=== PATIENT | male | born 1955 | race African-American/Black ===

== ENCOUNTER 2017-08-01 07:46 | Emergency (ER) | payer OTHER ==
[2017-08-01 09:00] LABS: ALT (SGPT) 35 U/L (8-55); AST (SGOT) 58 U/L (5-34); Albumin 3.5 g/dL (3.4-4.8); Alkaline Phosphatase 110 U/L (40-150); Anion Gap 12 mmol/L (10-20); BUN (Urea Nitrogen) 21 mg/dL (8.4-25.7); Bilirubin, Total 1.3 mg/dL (0.2-1.2); Calc. Creatinine Clearance 0 mL/min (70-130); Calcium 8.3 mg/dL (7.8-10.44); Carbon Dioxide 22 mmol/L (23-31); Chloride 104 mmol/L (98-107); Estimated GFR-MDRD 61; Globulin 3.8 g/dL (2.4-3.5); Glucose 118 mg/dL (80-115); Potassium 3.5 mmol/L (3.5-5.1); Protein, Total 7.3 g/dL (5.8-8.1); Sodium 134 mmol/L (136-145)
[2017-08-01 09:04] LABS: #Lymphocytes 1.6 thou/uL (1.20-3.40); #Monocytes 1.2 thou/uL (0.11-0.59); #Neutrophils 5.2 thou/uL (1.40-6.50); %Basophils 0.3 % (0.0-1.0); %Eosinophils 0.3 % (0.0-10.0); %Lymphocytes 19.4 % (21.0-51.0); %Monocytes 14.5 % (0.0-10.0); %Neutrophils 65.5 % (42.0-75.0); Hemoglobin 8.8 g/dL (14.0-18.0); MDiff Complete? YES; Macrocytosis SLIGHT = 6-15 cells (100X) (0-5/hpf); Mean Corpuscular HGB CONC 33.5 g/dL (32.0-36.0); Mean Corpuscular Hemoglobin 39.9 pg (27.0-31.0); Mean Platelet Volume 8.5 fL (7.4-10.4); PLT Morphology Comment Appears Adequate; Platelet Count 98 thou/uL (130-400); RBC Distribution Width 13.8 % (11.5-14.5)
[2017-08-01 09:05] LABS: CKMB 1.8 ng/mL (0-6.6); Troponin I 0.013 ng/mL (< 0.028)
--- NOTE | 2017-08-01 11:06 | ULT ---
ULTRASOUND WITH DOPPLER DUPLEX VENOUS LOWER EXTREMITIES BILATERAL: Date: 08/01/17 Time: 0910 hours HISTORY: 61-year-old male with bilateral lower extremity edema and left knee pain. TECHNIQUE: Color flow Doppler, spectral waveform analysis of pulsed Doppler, and estrada-scale imaging with rogelio fransisco and augmentation, were used to evaluate the bilateral common femoral, femoral, popliteal, hvac design engineer ior tibial, and superficial femoral, veins; and the proximal portions of the profunda femoral and gre ater saphenous, veins. FINDINGS: There is normal compressibility, demonstration of blood flow by color Doppler and pulsed Doppler, and response to augmentation, in all interrogated veins. There is edema in the soft tissues of the left calf. IMPRESSION: 1. No deep vein thrombosis in the bilateral lower extremities. 2. Soft tissue edema in the left leg. alvarez[] POS: [facility]
--- NOTE | 2017-08-01 11:20 | RAD ---
PA AND LATERAL CHEST: Date: 08/01/17 HISTORY: Lower extremity swelling. FINDINGS: Heart size is borderline enlarged. Mediastinal structures are unremarkable. Lungs are clear of infilt rates. There are no signs of failure. IMPRESSION: Borderline heart size. POS: [facility]
== END 2017-08-01 11:13 | disposition home or self-care (01) ==
LOC: ERS 07:46
DX: M79.89 Other specified soft tissue disorders (principal)
CPT/HCPCS: 71046; 80053; 82553; 83880; 84484; 85025; 85652; 86140; 93970